=== PATIENT | female | born 1935 | race Caucasian/White ===

== ENCOUNTER 2019-11-21 17:08 | Inpatient (IN) ==
[2019-11-21] MEDS ORDERED: SODIUM CHLORIDE 0.9% 1,000 ML IV STA (18:12)
[2019-11-21 18:43] LABS: ABG Base Excess -1.7 MMOL/L (-2.5-2.5); ABG HCO3 22.8 MMOL/L (20-26); ABG Oxygen Saturation 89.9 % (95-100); ABG PCO2 32.5 MM HG (35-48); ABG PH 7.434 (7.35-7.45); ABG PO2 58.5 MM HG (80-95); ABG TCO2 19.5 MMOL/L (23-27)
[2019-11-21 18:45] LABS: Basophils % 0.1 % (0.0-0.8); Eosinophils % 0.1 % (0.00-10.9); Hematocrit 37.3 VOL% (35.7-47.0); Immature Granulocytes % 1.1 %; Immature Granulocytes Absolute 0.12 #; Lymphocytes % 8.8 % (21.3-54.2); Mean Corpuscular HGB Conc 32.2 GM/DL (32-36); Mean Corpuscular Volume 91.4 FL (87-102); Mean Platelet Volume 10.6 FL (9.6-12.0); Monocytes % 6.2 % (1.7-12.7); Neutrophils % 83.7 % (38.7-73.9); Platelet Count 207 T/CUMM (130-400); Red Blood Count 4.08 MC/CUMM (3.8-5.5); Red Cell Distribution Width 14.8 % (9.3-17.3); White Blood Count 11.2 T/CUMM (4-12)
[2019-11-21 19:10] LABS: Apearance,Urine Slightly Hazy (Clear); Bacteria,Urine Occasional /HPF (Few); Bilirubin,Urine Negative (Negative); Blood, Urine Negative (Negative); Glucose,Urine (UA) Negative (Negative); Ketones,Urine Negative (Negative); Mucus,Urine Occasional /LPF (Occasional); Nitrite,Urine Negative (Negative); Protein,Urine 100 MG/DL; Squamous Epithelial Cell,Urine Occasional /HPF (0-10); Urine Color Yellow (Yellow); Urine Specific Gravity 1.025 (1.001-1.035); Urine Urobilinogen < 2.0 EU/DL (0.2-1.0); WBC,Urine 9 /HPF (0-6)
[2019-11-21 19:28] LABS: Albumin 2.6 G/DL (3.4-5.0); Bilirubin,Total 0.6 MG/DL (0.2-1.0); Calcium 8.9 MG/DL (8.5-10.1); Ferritin 572.5 ng/ml (8-252); Osmolality,Calculated 284.1 MOS/KG (273-304); Total Protein 7.7 G/DL (6.4-8.3)
[2019-11-21] MEDS ORDERED: DEXTROSE 50% 25 GM/50 ML VIAL IV PRN (21:04)
[2019-11-21] MEDS ORDERED: GLUCAGON 1 MG VIAL IM PRN (21:04)
[2019-11-21] MEDS ORDERED: ONDANSETRON 4 MG/2 ML VIAL IV PRN (21:04)
[2019-11-21] MEDS ORDERED: ACETAMINOPHEN 325 MG TABLET PO PRN (21:04)
[2019-11-21] MEDS ORDERED: FLUTICASONE 220 MCG/PUFF INHALER 12 GM INH PRN (21:10)
[2019-11-21] MEDS ORDERED: AZITHROMYCIN INJ 500 MG in SODIUM CHLORIDE 0.9% 250 ML IV SCH (21:30)
[2019-11-21 21:53] LABS: Thyroid Stimulating Hormone 2.22 uIU/ml (0.358-3.74)
[2019-11-21] MEDS: BIMATOPROST 0.01% OPH SOLN 2.5 ML BOTTLE BOTH EYES SCH (22:15)
[2019-11-21] MEDS: ASCORBIC ACID 500 MG TABLET PO SCH (22:15)
[2019-11-21] MEDS: ATORVASTATIN 10 MG TABLET PO SCH (22:15)
[2019-11-21] MEDS: BRINZOLAMIDE 1% OPH SUSP 10 ML BOTTLE BOTH EYES SCH (22:16)
[2019-11-21] MEDS: TIMOLOL 0.25% OPH SOLN 5 ML BOTTLE BOTH EYES SCH (22:16)
[2019-11-21] MEDS: LEVOFLOXACIN INJ 750 MG in PREMIX 1 EACH IV SCH (22:16)
[2019-11-21] MEDS: SODIUM CHLORIDE 0.9% 1,000 ML IV SCH (22:16)
[2019-11-22 02:25] LABS: Bilirubin,Total 0.5 MG/DL (0.2-1.0); Osmolality,Calculated 282.8 MOS/KG (273-304); Risk Ratio 2.06; Total Protein 6.5 G/DL (6.4-8.3); VLDL CHOLESTEROL 23.6 MG/DL
[2019-11-22 04:26] LABS: Basophils % 0.1 % (0.0-0.8); Eosinophils % 0.1 % (0.00-10.9); Hematocrit 33.5 VOL% (35.7-47.0); Hemoglobin 10.7 GM/DL (12.0-16.0); Immature Granulocytes % 1.1 %; Immature Granulocytes Absolute 0.11 #; Lymphocytes # 0.9 10*3/uL (1.4-4.0); Lymphocytes % 9.3 % (21.3-54.2); Mean Corpuscular HGB Conc 31.9 GM/DL (32-36); Mean Corpuscular Volume 90.8 FL (87-102); Mean Platelet Volume 10.6 FL (9.6-12.0); Monocytes % 6.1 % (1.7-12.7); Neutrophils % 83.3 % (38.7-73.9); Platelet Count 198 T/CUMM (130-400); Red Blood Count 3.69 MC/CUMM (3.8-5.5); Red Cell Distribution Width 14.7 % (9.3-17.3); White Blood Count 9.8 T/CUMM (4-12)
[2019-11-22] MEDS: DEXAMETHASONE 4 MG/1 ML VIAL IV SCH (08:19)
[2019-11-22] MEDS: ENOXAPARIN 30 MG/0.3 ML SYRINGE SUBCUT SCH (08:20)
[2019-11-22] MEDS: ZINC SULFATE 220 MG CAPSULE PO SCH (08:20)
[2019-11-22] MEDS: ASCORBIC ACID 500 MG TABLET PO SCH ×2 (08:20→20:34)
[2019-11-22] MEDS: carvediloL 6.25 MG TABLET PO SCH ×2 (08:21→16:18)
[2019-11-22] MEDS: PANTOPRAZOLE 40 MG TABLET PO SCH (08:21)
[2019-11-22] MEDS: ASPIRIN EC 81 MG TABLET PO SCH (08:21)
[2019-11-22] MEDS: CETIRIZINE 10 MG TABLET PO SCH (08:21)
[2019-11-22] MEDS: EZETIMIBE 10 MG TABLET PO SCH (08:21)
[2019-11-22] MEDS: COENZYME Q10 100 MG CAPSULE PO SCH (08:21)
[2019-11-22] MEDS: TIMOLOL 0.25% OPH SOLN 5 ML BOTTLE BOTH EYES SCH ×2 (08:23→20:33)
[2019-11-22] MEDS: BRINZOLAMIDE 1% OPH SUSP 10 ML BOTTLE BOTH EYES SCH ×2 (08:23→20:33)
[2019-11-22] MEDS: INSULIN REGULAR 100 UNIT/ML SUBCUT SCH ×4 (08:23→20:34)
[2019-11-22] MEDS ORDERED: AZITHROMYCIN 250 MG TABLET PO SCH (09:00)
[2019-11-22] MEDS: CYANOCOBALAMIN 500 MCG TABLET PO SCH (10:28)
[2019-11-22] MEDS: SODIUM CHLORIDE 0.9% 1,000 ML IV SCH (11:36)
[2019-11-22] MEDS: BIMATOPROST 0.01% OPH SOLN 2.5 ML BOTTLE BOTH EYES SCH (20:33)
[2019-11-22] MEDS: ATORVASTATIN 10 MG TABLET PO SCH (20:34)
[2019-11-23 05:25] LABS: Hematocrit 31.1 VOL% (35.7-47.0); Hemoglobin 10.2 GM/DL (12.0-16.0); Immature Granulocytes % 2.1 %; Immature Granulocytes Absolute 0.11 #; Lymphocytes # 0.6 10*3/uL (1.4-4.0); Lymphocytes % 10.5 % (21.3-54.2); Mean Corpuscular HGB Conc 32.8 GM/DL (32-36); Mean Corpuscular Volume 89.9 FL (87-102); Mean Platelet Volume 10.5 FL (9.6-12.0); Monocytes % 9.4 % (1.7-12.7); Platelet Count 183 T/CUMM (130-400); Red Blood Count 3.46 MC/CUMM (3.8-5.5); Red Cell Distribution Width 14.6 % (9.3-17.3); White Blood Count 5.3 T/CUMM (4-12)
[2019-11-23 05:42] LABS: Calcium 8.5 MG/DL (8.5-10.1); Osmolality,Calculated 293.7 MOS/KG (273-304)
[2019-11-23 05:47] LABS: Band Neutrophils 1 % (0-10); Hypochromasia Slight; Lymphocytes 13 % (20-55); Segmented Neutrophils 73 % (50-85); Total Cells Counted 100
[2019-11-23 05:48] LABS: Microcytosis Slight; Platelet Estimate Adequate
[2019-11-23] MEDS: DEXAMETHASONE 4 MG/1 ML VIAL IV SCH (08:37)
[2019-11-23] MEDS: INSULIN REGULAR 100 UNIT/ML SUBCUT SCH ×4 (08:38→21:30)
[2019-11-23] MEDS: ENOXAPARIN 40 MG/0.4 ML SYRINGE SUBCUT SCH (08:38)
[2019-11-23] MEDS: CYANOCOBALAMIN 500 MCG TABLET PO SCH (08:39)
[2019-11-23] MEDS: PANTOPRAZOLE 40 MG TABLET PO SCH (08:39)
[2019-11-23] MEDS: CETIRIZINE 10 MG TABLET PO SCH (08:40)
[2019-11-23] MEDS: COENZYME Q10 100 MG CAPSULE PO SCH (08:40)
[2019-11-23] MEDS: ASCORBIC ACID 500 MG TABLET PO SCH ×2 (08:40→21:31)
[2019-11-23] MEDS: carvediloL 6.25 MG TABLET PO SCH ×2 (08:40→16:28)
[2019-11-23] MEDS: EZETIMIBE 10 MG TABLET PO SCH (08:40)
[2019-11-23] MEDS: ASPIRIN EC 81 MG TABLET PO SCH (08:40)
[2019-11-23] MEDS: BRINZOLAMIDE 1% OPH SUSP 10 ML BOTTLE BOTH EYES SCH ×2 (08:48→21:29)
[2019-11-23] MEDS: TIMOLOL 0.25% OPH SOLN 5 ML BOTTLE BOTH EYES SCH ×2 (08:48→21:31)
[2019-11-23] MEDS: ENOXAPARIN 30 MG/0.3 ML SYRINGE SUBCUT SCH (08:52)
[2019-11-23] MEDS: SODIUM CHLORIDE 0.9% 1,000 ML IV SCH (10:24)
[2019-11-23] MEDS: VERAPAMIL SR 180 MG TABLET PO SCH (17:55)
[2019-11-23] MEDS: ERTAPENEM 1,000 MG in SODIUM CHLORIDE 0.9% 100 ML IV SCH (17:59)
[2019-11-23] MEDS: BIMATOPROST 0.01% OPH SOLN 2.5 ML BOTTLE BOTH EYES SCH (21:29)
[2019-11-23] MEDS: INSULIN GLARGINE 100 UNIT/ML SUBCUT SCH (21:30)
[2019-11-23] MEDS: ATORVASTATIN 10 MG TABLET PO SCH (21:31)
[2019-11-23] MEDS: LEVOFLOXACIN INJ 750 MG in PREMIX 1 EACH IV SCH (21:32)
[2019-11-24 05:07] LABS: Basophils % 0.1 % (0.0-0.8); Hematocrit 33.2 VOL% (35.7-47.0); Hemoglobin 10.7 GM/DL (12.0-16.0); Immature Granulocytes % 2.2 %; Lymphocytes # 0.7 10*3/uL (1.4-4.0); Lymphocytes % 7.9 % (21.3-54.2); Mean Corpuscular HGB Conc 32.2 GM/DL (32-36); Mean Corpuscular Volume 90.5 FL (87-102); Mean Platelet Volume 10.6 FL (9.6-12.0); Monocytes % 7.2 % (1.7-12.7); Neutrophils % 82.6 % (38.7-73.9); Platelet Count 211 T/CUMM (130-400); Red Blood Count 3.67 MC/CUMM (3.8-5.5); Red Cell Distribution Width 14.6 % (9.3-17.3); White Blood Count 9.2 T/CUMM (4-12)
[2019-11-24 05:33] LABS: Calcium 8.6 MG/DL (8.5-10.1); Osmolality,Calculated 296.5 MOS/KG (273-304)
[2019-11-24] MEDS: SODIUM CHLORIDE 0.9% 1,000 ML IV SCH ×2 (07:05→22:50)
[2019-11-24] MEDS: INSULIN REGULAR 100 UNIT/ML SUBCUT SCH ×4 (08:35→21:00)
[2019-11-24] MEDS: ENOXAPARIN 40 MG/0.4 ML SYRINGE SUBCUT SCH (08:37)
[2019-11-24] MEDS: DEXAMETHASONE 4 MG/1 ML VIAL IV SCH (08:37)
[2019-11-24] MEDS: EZETIMIBE 10 MG TABLET PO SCH (08:38)
[2019-11-24] MEDS: ASCORBIC ACID 500 MG TABLET PO SCH ×2 (08:38→20:54)
[2019-11-24] MEDS: CETIRIZINE 10 MG TABLET PO SCH (08:38)
[2019-11-24] MEDS: carvediloL 6.25 MG TABLET PO SCH ×2 (08:38→17:47)
[2019-11-24] MEDS: CYANOCOBALAMIN 500 MCG TABLET PO SCH (08:38)
[2019-11-24] MEDS: ASPIRIN EC 81 MG TABLET PO SCH (08:38)
[2019-11-24] MEDS: VERAPAMIL SR 180 MG TABLET PO SCH (08:38)
[2019-11-24] MEDS: COENZYME Q10 100 MG CAPSULE PO SCH (08:38)
[2019-11-24] MEDS: ZINC SULFATE 220 MG CAPSULE PO SCH (08:39)
[2019-11-24] MEDS: TIMOLOL 0.25% OPH SOLN 5 ML BOTTLE BOTH EYES SCH ×2 (08:41→20:57)
[2019-11-24] MEDS: BRINZOLAMIDE 1% OPH SUSP 10 ML BOTTLE BOTH EYES SCH ×2 (08:41→20:57)
[2019-11-24] MEDS: PANTOPRAZOLE 40 MG TABLET PO SCH (08:42)
[2019-11-24] MEDS ORDERED: INSULIN GLARGINE 100 UNIT/ML SUBCUT SCH ×2 (09:00→15:31)
[2019-11-24] MEDS: ERTAPENEM 1,000 MG in SODIUM CHLORIDE 0.9% 100 ML IV SCH (17:47)
[2019-11-24] MEDS: ATORVASTATIN 10 MG TABLET PO SCH (20:54)
[2019-11-24] MEDS: BIMATOPROST 0.01% OPH SOLN 2.5 ML BOTTLE BOTH EYES SCH (20:57)
[2019-11-24] MEDS: INSULIN GLARGINE 100 UNIT/ML SUBCUT SCH (21:00)
[2019-11-25] MEDS: hydrALAZINE 20 MG/1 ML VIAL IV PRN (03:46)
[2019-11-25] MEDS: SODIUM CHLORIDE 0.9% 1,000 ML IV SCH (03:48)
[2019-11-25] MEDS: ASCORBIC ACID 500 MG TABLET PO SCH ×2 (08:27→20:51)
[2019-11-25] MEDS: carvediloL 6.25 MG TABLET PO SCH ×2 (08:27→17:49)
[2019-11-25] MEDS: ASPIRIN EC 81 MG TABLET PO SCH (08:28)
[2019-11-25] MEDS: PANTOPRAZOLE 40 MG TABLET PO SCH (08:28)
[2019-11-25] MEDS: CETIRIZINE 10 MG TABLET PO SCH (08:28)
[2019-11-25] MEDS: COENZYME Q10 100 MG CAPSULE PO SCH (08:28)
[2019-11-25] MEDS: VERAPAMIL SR 180 MG TABLET PO SCH (08:28)
[2019-11-25] MEDS: EZETIMIBE 10 MG TABLET PO SCH (08:28)
[2019-11-25] MEDS: INSULIN REGULAR 100 UNIT/ML SUBCUT SCH ×4 (08:29→20:52)
[2019-11-25] MEDS: DEXAMETHASONE 4 MG/1 ML VIAL IV SCH (08:29)
[2019-11-25] MEDS: CYANOCOBALAMIN 500 MCG TABLET PO SCH (08:30)
[2019-11-25] MEDS: ENOXAPARIN 40 MG/0.4 ML SYRINGE SUBCUT SCH (08:30)
[2019-11-25] MEDS: TIMOLOL 0.25% OPH SOLN 5 ML BOTTLE BOTH EYES SCH ×2 (08:43→20:55)
[2019-11-25] MEDS: BRINZOLAMIDE 1% OPH SUSP 10 ML BOTTLE BOTH EYES SCH ×2 (08:43→20:55)
[2019-11-25] MEDS: ERTAPENEM 1,000 MG in SODIUM CHLORIDE 0.9% 100 ML IV SCH (17:49)
[2019-11-25] MEDS ORDERED: DEXTROSE 50% 25 GM/50 ML VIAL IV PRN (17:53)
[2019-11-25] MEDS ORDERED: GLUCAGON 1 MG VIAL IM PRN (17:53)
[2019-11-25] MEDS ORDERED: INSULIN REGULAR 100 UNIT/ML SUBCUT ONE (17:55)
[2019-11-25] MEDS: ATORVASTATIN 10 MG TABLET PO SCH (20:51)
[2019-11-25] MEDS: LEVOFLOXACIN INJ 750 MG in PREMIX 1 EACH IV SCH (20:51)
[2019-11-25] MEDS: BIMATOPROST 0.01% OPH SOLN 2.5 ML BOTTLE BOTH EYES SCH (20:55)
[2019-11-25] MEDS ORDERED: INSULIN GLARGINE 100 UNIT/ML SUBCUT SCH (21:00)
[2019-11-26] MEDS: hydrALAZINE 20 MG/1 ML VIAL IV PRN (04:03)
[2019-11-26 05:07] LABS: Basophils % 0.1 % (0.0-0.8); Hematocrit 30.3 VOL% (35.7-47.0); Hemoglobin 9.8 GM/DL (12.0-16.0); Immature Granulocytes % 5.7 %; Immature Granulocytes Absolute 0.58 #; Lymphocytes # 0.8 10*3/uL (1.4-4.0); Mean Corpuscular HGB Conc 32.3 GM/DL (32-36); Mean Corpuscular Volume 89.9 FL (87-102); Mean Platelet Volume 10.9 FL (9.6-12.0); Monocytes % 9.6 % (1.7-12.7); Neutrophils % 76.6 % (38.7-73.9); Platelet Count 213 T/CUMM (130-400); Red Blood Count 3.37 MC/CUMM (3.8-5.5); Red Cell Distribution Width 14.3 % (9.3-17.3); White Blood Count 10.2 T/CUMM (4-12)
[2019-11-26 05:25] LABS: Calcium 8.7 MG/DL (8.5-10.1); Osmolality,Calculated 301.1 MOS/KG (273-304)
[2019-11-26 05:35] LABS: Band Neutrophils 2 % (0-10); Hypochromasia 1+; Lymphocytes 8 % (20-55); Microcytosis 1+; Myelocytes 1 %; Nucleated Red Blood Cells 1 (0-5); Ovalocytes Slight; Platelet Estimate Adequate; Segmented Neutrophils 83 % (50-85); Total Cells Counted 100
[2019-11-26] MEDS: INSULIN REGULAR 100 UNIT/ML SUBCUT SCH ×2 (07:36→11:25)
[2019-11-26] MEDS ORDERED: INSULIN GLARGINE 100 UNIT/ML SUBCUT SCH (09:00)
[2019-11-26] MEDS: CYANOCOBALAMIN 500 MCG TABLET PO SCH (09:45)
[2019-11-26] MEDS: BRINZOLAMIDE 1% OPH SUSP 10 ML BOTTLE BOTH EYES SCH (09:45)
[2019-11-26] MEDS: COENZYME Q10 100 MG CAPSULE PO SCH (09:45)
[2019-11-26] MEDS: ENOXAPARIN 40 MG/0.4 ML SYRINGE SUBCUT SCH (09:45)
[2019-11-26] MEDS: DEXAMETHASONE 4 MG/1 ML VIAL IV SCH (09:45)
[2019-11-26] MEDS: ASPIRIN EC 81 MG TABLET PO SCH (09:45)
[2019-11-26] MEDS: EZETIMIBE 10 MG TABLET PO SCH (09:45)
[2019-11-26] MEDS: VERAPAMIL SR 180 MG TABLET PO SCH (09:45)
[2019-11-26] MEDS: ASCORBIC ACID 500 MG TABLET PO SCH (09:45)
[2019-11-26] MEDS: CETIRIZINE 10 MG TABLET PO SCH (09:45)
[2019-11-26] MEDS: carvediloL 6.25 MG TABLET PO SCH (09:45)
[2019-11-26] MEDS: ZINC SULFATE 220 MG CAPSULE PO SCH (09:45)
[2019-11-26] MEDS: TIMOLOL 0.25% OPH SOLN 5 ML BOTTLE BOTH EYES SCH (09:45)
[2019-11-26] MEDS: PANTOPRAZOLE 40 MG TABLET PO SCH (09:45)
[2019-11-26] MEDS ORDERED: DOCUSATE SODIUM 100 MG CAPSULE PO PRN (11:05)
[2019-11-26] MEDS ORDERED: LACTULOSE 20 GM/30 ML UDCUP PO ONE (11:06)
[2019-11-26] MEDS: ERTAPENEM 1,000 MG in SODIUM CHLORIDE 0.9% 100 ML IV SCH (11:22)
[2019-11-26 12:28] VITALS: BP 128/64
== END 2019-11-26 13:20 | DRG 177 ==
LOC: N.ED 17:08 → N.EDINP 21:03 → N.2E 21:15
PROVIDERS: ADMIT Internal Medicine; ATTEND Internal Medicine

== ENCOUNTER 2020-01-27 07:32 | Observation (INO) ==
[2020-01-27] MEDS ORDERED: SODIUM CHLORIDE 0.9% 1,000 ML IV STA (08:24)
[2020-01-27] MEDS ORDERED: hydrALAZINE 20 MG/1 ML VIAL IV STA (08:35)
[2020-01-27 08:58] LABS: Basophils % 0.5 % (0.0-0.8); Eosinophils # 0.2 10*3/uL (0.0-0.87); Eosinophils % 2.1 % (0.00-10.9); Hematocrit 37.4 VOL% (35.7-47.0); Hemoglobin 11.7 GM/DL (12.0-16.0); Immature Granulocytes % 0.3 %; Immature Granulocytes Absolute 0.02 #; Lymphocytes # 1.4 10*3/uL (1.4-4.0); Lymphocytes % 18.9 % (21.3-54.2); Mean Corpuscular HGB Conc 31.3 GM/DL (32-36); Mean Corpuscular Volume 95.2 FL (87-102); Mean Platelet Volume 11.2 FL (9.6-12.0); Monocytes % 7.5 % (1.7-12.7); Neutrophils % 70.7 % (38.7-73.9); Platelet Count 169 T/CUMM (130-400); Red Blood Count 3.93 MC/CUMM (3.8-5.5); Red Cell Distribution Width 15.2 % (9.3-17.3); White Blood Count 7.5 T/CUMM (4-12)
[2020-01-27 09:08] LABS: PT Patient Result 10.9 SECS (9.8-11.9); Partial Thromboplastin Time 20.5 SECS (23.9-33.8)
[2020-01-27 09:15] LABS: Albumin 3.3 G/DL (3.4-5.0); Bilirubin,Total 0.6 MG/DL (0.2-1.0); Calcium 8.6 MG/DL (8.5-10.1); Osmolality,Calculated 286.4 MOS/KG (273-304); Total Protein 6.6 G/DL (6.4-8.3)
[2020-01-27] MEDS ORDERED: MORPHINE 4 MG/1 ML VIAL IV PRN (10:49)
[2020-01-27] MEDS ORDERED: ONDANSETRON 4 MG/2 ML VIAL IV PRN (10:49)
[2020-01-27] MEDS ORDERED: ACETAMINOPHEN 325 MG TABLET PO PRN (10:49)
[2020-01-27] MEDS ORDERED: GLUCAGON 1 MG VIAL IM PRN (10:49)
[2020-01-27] MEDS ORDERED: LACTULOSE 20 GM/30 ML UDCUP PO PRN (10:49)
[2020-01-27] MEDS ORDERED: DEXTROSE 50% 25 GM/50 ML VIAL IV PRN (10:49)
[2020-01-27] MEDS: INSULIN REGULAR 100 UNIT/ML SUBCUT SCH ×3 (12:18→21:54)
[2020-01-27] MEDS: SODIUM CHLORIDE 0.9% 1,000 ML IV SCH ×2 (13:13→22:01)
[2020-01-27] MEDS ORDERED: INSULIN LISPRO 100 UNIT/ML SUBCUT SCH (17:00)
[2020-01-27] MEDS ORDERED: BIMATOPROST 0.01% OPH SOLN 2.5 ML BOTTLE BOTH EYES SCH (21:00)
[2020-01-27] MEDS ORDERED: INSULIN GLARGINE 100 UNIT/ML SUBCUT SCH (21:00)
[2020-01-27] MEDS ORDERED: ATORVASTATIN 10 MG TABLET PO SCH (21:00)
[2020-01-27] MEDS: TIMOLOL 0.5% OPH SOLN 5 ML BOTTLE BOTH EYES SCH (21:53)
[2020-01-27] MEDS: carvediloL 12.5 MG TABLET PO SCH (21:53)
[2020-01-27] MEDS: ASCORBIC ACID 500 MG TABLET PO SCH (21:53)
[2020-01-28 05:20] LABS: Basophils % 0.4 % (0.0-0.8); Eosinophils # 0.2 10*3/uL (0.0-0.87); Eosinophils % 2.1 % (0.00-10.9); Hematocrit 31.3 VOL% (35.7-47.0); Hemoglobin 9.8 GM/DL (12.0-16.0); Immature Granulocytes % 0.4 %; Immature Granulocytes Absolute 0.03 #; Lymphocytes % 26.4 % (21.3-54.2); Mean Corpuscular HGB Conc 31.3 GM/DL (32-36); Mean Corpuscular Volume 95.7 FL (87-102); Mean Platelet Volume 11.4 FL (9.6-12.0); Monocytes % 15.2 % (1.7-12.7); Neutrophils % 55.5 % (38.7-73.9); Platelet Count 144 T/CUMM (130-400); Red Blood Count 3.27 MC/CUMM (3.8-5.5); Red Cell Distribution Width 15.1 % (9.3-17.3); White Blood Count 7.6 T/CUMM (4-12)
[2020-01-28 05:38] LABS: Bacteria,Urine Moderate /HPF (Few); Bilirubin,Urine Negative (Negative); Blood, Urine Negative (Negative); Glucose,Urine (UA) 150 mg/dL (Negative); Ketones,Urine Negative (Negative); Mucus,Urine Occasional /LPF (Occasional); Nitrite,Urine Negative (Negative); Protein,Urine 30 MG/DL; RBC,Urine <1 /HPF (0-4); Squamous Epithelial Cell,Urine Occasional /HPF (0-10); Urine Appearance Slightly Hazy (Clear); Urine Color Yellow (Yellow); Urine Specific Gravity 1.016 (1.001-1.035); Urine Urobilinogen < 2.0 EU/DL (0.2-1.0); WBC,Urine 6 /HPF (0-6)
[2020-01-28 05:45] LABS: Calcium 8.3 MG/DL (8.5-10.1); Osmolality,Calculated 283.5 MOS/KG (273-304); Risk Ratio 2.09; VLDL CHOLESTEROL 15.8 MG/DL
[2020-01-28] MEDS ORDERED: GLIMEPIRIDE 4 MG TABLET PO SCH (08:00)
[2020-01-28] MEDS: carvediloL 12.5 MG TABLET PO SCH (08:41)
[2020-01-28] MEDS: ASCORBIC ACID 500 MG TABLET PO SCH (08:41)
[2020-01-28] MEDS ORDERED: EZETIMIBE 10 MG TABLET PO SCH (09:00)
[2020-01-28] MEDS ORDERED: ASPIRIN EC 81 MG TABLET PO SCH (09:00)
[2020-01-28] MEDS ORDERED: VERAPAMIL SR 120 MG TABLET PO SCH (09:00)
[2020-01-28] MEDS ORDERED: sitaGLIPtin 100 MG TABLET PO SCH (09:00)
[2020-01-28] MEDS ORDERED: PANTOPRAZOLE 40 MG TABLET PO SCH (09:00)
[2020-01-28] MEDS ORDERED: CYANOCOBALAMIN 500 MCG TABLET PO SCH (09:00)
[2020-01-28] MEDS ORDERED: FERROUS SULFATE ER 140 MG TABLET PO SCH (09:00)
[2020-01-28] MEDS: INSULIN REGULAR 100 UNIT/ML SUBCUT SCH (10:43)
[2020-01-28] MEDS: TIMOLOL 0.5% OPH SOLN 5 ML BOTTLE BOTH EYES SCH (10:43)
[2020-01-28 11:45] VITALS: BP 155/47
[2020-01-28] MEDS: SODIUM CHLORIDE 0.9% 1,000 ML IV SCH (13:22)
== END 2020-01-28 14:01 | disposition home or self-care (01) ==
LOC: EDBD → EDUNIT# → N.ED 07:32 → N.EDINP 07:32 → SUATTDRO 10:49 → N.EDINP 14:54 → N.4E 15:05
PROVIDERS: ADMIT Internal Medicine; ATTEND Internal Medicine